=== PATIENT | female | born 1995 | race Caucasian/White ===

== ENCOUNTER 2024-12-13 05:52 | Emergency (ER) | payer BC, SELFPAY ==
[2024-12-13] VITALS (12 sets, daily range): BP systolic 124–132; BP diastolic 79–93; PULSE 80–112; RESP 13–20; TEMP 36.4; O2SAT 98–100
--- NOTE | ~2024-12-13 | US_ITS ---
EXAMINATION: US OB <=14 wk fetus w TV DATE: 12/13/2024 07:52 INDICATION: Pelvic pain and bleeding during first trimester . TECHNIQUE: Real-time pelvic ultrasound utilizing both a transvaginal and transabdominal probe was performed. The interpreting radiologist was not present for the study. COMPARISON: None. FINDINGS: The uterus measures 8.6 x 4.1 x 5.1 cm. Endometrial complex measures 6 mm in thickness. No evident intrauterine gestational sac. The right ovary measures 3.2 x 2.5 x 1.8 cm. The left ovary measures 3.2 x 2.7 x 2.0 cm. There are small anechoic follicles in both ovaries the largest measuring 1.2 cm on the left and 0.9 cm on the right. Basilar flow is also identified in both ovaries on color Doppler. There is no free fluid in the pelvis. IMPRESSION: 1. No evident intrauterine gestational sac for which differential would include early , failed or ectopic . No evident adnexal masses to elevate concern for the latter. Reviewed, dictated and finalized at location A. IMPRESSION: 1. No evident intrauterine gestational sac for which differential would include early , failed or ectopic . No evident adnexal mas ses to elevate concern for the latter.
[2024-12-13 06:12] LABS: Hematocrit 40.6 % (37.0-47.0); Hemoglobin 13.9 g/dL (12.0-15.0); Immature Granulocyte Percent A 0.3 % (0-0.5); Lymphocytes Absolute Auto 2.38 K/mm3 (0.9-3.2); Mean Corpuscular HGB Conc 34.2 g/dl (32-36); Mean Corpuscular Hemoglobin 30.6 pg (26-34); Mean Corpuscular Volume 89.4 fl (80-100); Nucleated Red Blood Cells Absolute Auto 0.000 K/mm3 (0.0-0.012); Nucleated Red Blood Cells Perc 0.0 % (0.0-0.2); Platelet Count Result 297 k/mm3 (150-375); Red Blood Count 4.54 M/mm3 (4.2-5.4); White Blood Count 7.4 K/mm3 (4.5-10.0)
[2024-12-13 06:24] LABS: INR 0.9; Partial Thromboplastin Time 29.3 Seconds (22.3-36.8); Prothrombin Time 12.8 Seconds (11.1-14.7)
--- NOTE | 2024-12-13 06:26 | ED.FEMALEGU ---
HPI - Female Genitourinary General Chief complaint: Vaginal Bleeding <Gavino Uriostegui MD - Last Filed: 12/13/24 07:12> Stated complaint: 5 weeks and bleeding <Gavino Uriostegui MD - Last Filed: 12/13/24 07:12> Time Seen by Provider: 12/13/24 05:56 <Gavino Uriostegui MD - Last Filed: 12/13/24 07:12> History of Present Illness HPI Narrative: 29-year-old otherwise healthy female approximately 5 weeks by last menstrual period presenting with vaginal bleeding and some clot passage. Some lower abdominal cramping she states feels like menses. Intentional . Has not yet established with her OBGYN Dr. Cardona, but has an appointment in early December. Patient denies any nausea, vomiting, fever, chills, back pain, dysuria or hematuria. Never had before. No history of abdominal surgeries. <Gavino Uriostegui MD - Last Filed: 12/13/24 07:12> Related Data Home medications: Home Medications ?Medication ?Instructions ?Recorded ?Confirmed ?Last Taken ?Type phentermine 37.5 mg tablet mg PO 07/13/24 07/13/24 Unknown History <Gavino Uriostegui MD - Last Filed: 12/13/24 07:12> Allergies/Adverse reactions: Allergies Allergy/AdvReac Type Severity Reaction Status Date / Time No Known Allergies Allergy Verified 07/13/24 15:41 <Gavino Uriostegui MD - Last Filed: 12/13/24 07:12> Review of Systems Review of Systems: As reviewed above in HPI <Gavino Uriostegui MD - Last Filed: 12/13/24 07:12> [facility] Family History Family History: Family History Father Hypertension <Gavino Uriostegui MD - Last Filed: 12/13/24 07:12> Social History Social History: Social History Smoking status: Never smoker Alcohol intake: current Alcohol use details: socially Substance use: never Substance use type: does not use Do You Feel Safe in your Home?: Yes Lack of Transportation: No Lack of Food: Never True Current Housing: I Have Housing Concerned About Future Housing: No Difficulty Paying Gas/Electric Bills: No Difficulty Paying for Meds: No Currently Unemployed: No Education: Master's Degree or Higher Difficulty w/ Childcare or Family Care: No Living arrangements: alone Occupation/Education: occupation Gender identity (if verbalized by the patient): Female Sexual Orientation (if Verbalized by the Patient): Straight or Heterosexual <Gavino Uriostegui MD - Last Filed: 12/13/24 07:12> Exam Narrative: GENERAL: [Well-appearing, well-nourished, and in no acute distress.] HEAD: [Normocephalic, atraumatic.] EYES: [PERRLA and EOMI.] ENT: Nares clear, no rhinorrhea or epistaxis. Mucous membranes moist. NECK: Supple. CHEST: [Clear to auscultation. No respiratory distress.] HEART: [Regular rate and rhythm]. No murmur heard. [Normal peripheral pulses.] ABDOMEN: [Soft, nondistended], [nontender], [No rigidity or guarding] EXTREMITIES: Normal range of motion. [No edema.] SKIN: Warm, dry, no rash. NEURO: [No focal deficits]. Alert and oriented [x3.] PSYCH: [Normal mood and affect.] <Gavino Uriostegui MD - Last Filed: 12/13/24 07:12> Course Course Emergency Course: ZYCH: Patient signed out pending transvaginal ultrasound. HCG was 3.34. Transvaginal ultrasound did not show a fetus inside the uterine vault. Blood type is O-positive and no need for RhoGAM. Patient does not have significant abdominal pain in her bleeding has slowed down significantly. Suspect patient has had a miscarriage although early with still be a consideration. Patient will be discharged to follow-up closely OBGYN to continue tracking hCG. Patient has updated on results and verbalized understanding. <Dalton Beck MD - Last Filed: 12/13/24 08:25> Vital Signs Vital signs: Vital Signs Temperature 97.5 F L 12/13/24 05:58 Pulse Rate 112 H 12/13/24 05:58 Respiratory Rate 18 12/13/24 05:58 Blood Pressure 132/85 12/13/24 05:58 Pulse Oximetry 100 12/13/24 05:58 Oxygen Delivery Room Air 12/13/24 05:58 Temperature 97.5 F L 12/13/24 05:58 Pulse Rate 86 12/13/24 06:31 Respiratory Rate 18 12/13/24 06:31 Blood Pressure 125/87 12/13/24 06:31 Pulse Oximetry 98 12/13/24 06:31 Oxygen Delivery Room Air 12/13/24 05:58 <Gavino Uriostegui MD - Last Filed: 12/13/24 07:12> Vital Signs Temperature 97.5 F L 12/13/24 05:58 Pulse Rate 112 H 12/13/24 05:58 Respiratory Rate 18 12/13/24 05:58 Blood Pressure 132/85 12/13/24 05:58 Pulse Oximetry 100 12/13/24 05:58 Oxygen Delivery Room Air 12/13/24 05:58 Temperature 97.5 F L 12/13/24 05:58 Pulse Rate 86 12/13/24 06:31 Respiratory Rate 18 12/13/24 06:31 Blood Pressure 125/87 12/13/24 06:31 Pulse Oximetry 98 12/13/24 06:31 Oxygen Delivery Room Air 12/13/24 05:58 <Dalton Beck MD - Last Filed: 12/13/24 08:25> MDM - Female Genitourinary MDM Narrative Medical decision making narrative: 29-year-old otherwise healthy female approximately 5 weeks by last menstrual period presenting with vaginal bleeding and some clot passage. Some lower abdominal cramping she states feels like menses. Intentional . Has not yet established with her OBGYN Dr. Cardona, but has an appointment in early December. Patient denies any nausea, vomiting, fever, chills, back pain, dysuria or hematuria. Never had before. No history of abdominal surgeries. Patient is well appearing not any acute distress. Mildly tachycardic but afebrile. Saturating 100% on room air. Normal vital signs. Soft nondistended nontender abdomen. Given patient's 1st trimester bleeding with unknown location will have to rule out ectopic or other potential causes of her bleeding. Urinalysis, beta hCG level, blood work obtained. Pelvic ultrasound ordered at this time. Patient care signed over to morning physician pending completion of workup and final disposition based on results. <Gavino Uriostegui MD - Last Filed: 12/13/24 07:12> Lab Data Result diagrams: 12/13/24 06:06 12/13/24 06:06 <Gavino Uriostegui MD - Last Filed: 12/13/24 07:12> Labs: Lab Results 12/13/24 Range/Units 06:06 WBC 7.4 (4.5-10.0) K/mm3 RBC 4.54 (4.2-5.4) M/mm3 Hgb 13.9 (12.0-15.0) g/dL Hct 40.6 (37.0-47.0) % MCV 89.4 (80-100) fl MCH 30.6 (26-34) pg MCHC 34.2 (32-36) g/dl RDW 12.5 (11.5-14.5) % Plt Count 297 (150-375) k/mm3 MPV 8.6 (7.4-10.4) fl Immature Gran % (Auto) 0.3 (0-0.5) % Neut % (Auto) 58.9 (45.5-73.1) % Lymph % (Auto) 32.3 (18.3-44.2) % Mellette % (Auto) 6.5 (2.6-8.5) % Eos % (Auto) 1.6 (0-4.4) % Baso % (Auto) 0.4 (0.2-1.2) % Lymph # (Auto) 2.38 (0.9-3.2) K/mm3 Mellette # (Auto) 0.5 (0.1-0.6) K/mm3 Eos # (Auto) 0.1 (0-0.3) K/mm3 Baso # (Auto) 0.0 (0.0-0.1) K/mm3 Abs Immat Gran (auto) 0.02 (0.00-0.031) K/mm3 Absolute Neuts (auto) 4.3 (1.3-6.7) K/mm3 Absolute Nucleated RBC 0.000 (0.0-0.012) K/mm3 Nucleated RBC % 0.0 (0.0-0.2) % PT 12.8 (11.1-14.7) Seconds INR 0.9 APTT 29.3 (22.3-36.8) Seconds Sodium 138 (137-145) mmol/L Potassium 3.5 (3.4-5.0) mmol/L Chloride 104 (98-107) mmol/L Carbon Dioxide 26 (22-30) mmol/L Anion Gap 8 (4-12) mmol/L BUN 13 (7-17) mg/dL Creatinine 0.85 (0.7-1.0) mg/dL Estim Creat Clear Calc 110 ml/min Estimated GFR > 60 (59 - ) Glucose 104 (65-110) mg/dL Calcium 8.6 (8.4-10.2) mg/dL Total Bilirubin 0.4 (0.2-1.3) mg/dL AST 25 (14-36) U/L ALT 18 (6-35) U/L Alkaline Phosphatase 61 (38-126) U/L Total Protein 7.0 (6.3-8.2) g/dL Albumin 4.0 (3.5-5.1) g/dL Beta HCG, Quant 3.34 mIU/ML Blood Type O Positive Antibody Screen Negative Screen Not Reportable Baby's Blood Type Not Reportable Baby's WILLIAM Not Reportable Doses of RhIg Required 0 <Gavino Uriostegui MD - Last Filed: 12/13/24 07:12> Lab Results 12/13/24 Range/Units 06:06 WBC 7.4 (4.5-10.0) K/mm3 RBC 4.54 (4.2-5.4) M/mm3 Hgb 13.9 (12.0-15.0) g/dL Hct 40.6 (37.0-47.0) % MCV 89.4 (80-100) fl MCH 30.6 (26-34) pg MCHC 34.2 (32-36) g/dl RDW 12.5 (11.5-14.5) % Plt Count 297 (150-375) k/mm3 MPV 8.6 (7.4-10.4) fl Immature Gran % (Auto) 0.3 (0-0.5) % Neut % (Auto) 58.9 (45.5-73.1) % Lymph % (Auto) 32.3 (18.3-44.2) % Mellette % (Auto) 6.5 (2.6-8.5) % Eos % (Auto) 1.6 (0-4.4) % Baso % (Auto) 0.4 (0.2-1.2) % Lymph # (Auto) 2.38 (0.9-3.2) K/mm3 Mellette # (Auto) 0.5 (0.1-0.6) K/mm3 Eos # (Auto) 0.1 (0-0.3) K/mm3 Baso # (Auto) 0.0 (0.0-0.1) K/mm3 Abs Immat Gran (auto) 0.02 (0.00-0.031) K/mm3 Absolute Neuts (auto) 4.3 (1.3-6.7) K/mm3 Absolute Nucleated RBC 0.000 (0.0-0.012) K/mm3 Nucleated RBC % 0.0 (0.0-0.2) % PT 12.8 (11.1-14.7) Seconds INR 0.9 APTT 29.3 (22.3-36.8) Seconds Sodium 138 (137-145) mmol/L Potassium 3.5 (3.4-5.0) mmol/L Chloride 104 (98-107) mmol/L Carbon Dioxide 26 (22-30) mmol/L Anion Gap 8 (4-12) mmol/L BUN 13 (7-17) mg/dL Creatinine 0.85 (0.7-1.0) mg/dL Estim Creat Clear Calc 110 ml/min Estimated GFR > 60 (59 - ) Glucose 104 (65-110) mg/dL Calcium 8.6 (8.4-10.2) mg/dL Total Bilirubin 0.4 (0.2-1.3) mg/dL AST 25 (14-36) U/L ALT 18 (6-35) U/L Alkaline Phosphatase 61 (38-126) U/L Total Protein 7.0 (6.3-8.2) g/dL Albumin 4.0 (3.5-5.1) g/dL Beta HCG, Quant 3.34 mIU/ML Blood Type O Positive Antibody Screen Negative Screen Not Reportable Baby's Blood Type Not Reportable Baby's WILLIAM Not Reportable Doses of RhIg Required 0 <Dalton Beck MD - Last Filed: 12/13/24 08:25> Discharge Plan Discharge Clinical Impression: Vaginal bleeding during <Gavino Uriostegui MD - Last Filed: 12/13/24 07:12> Patient Disposition: Still a Patient <Gavino Uriostegui MD - Last Filed: 12/13/24 07:12> Condition: Stable <Gavino Uriostegui MD - Last Filed: 12/13/24 07:12> Additional Instructions: Please call your OBGYN to arrange close follow-up in 2-3 days.. They will want to repeat her HCG to see if it is increasing or returning to 0. If you develop significant bleeding of more than 1 pad per hour for 2 hours and please return ED for re-evaluation. <Gavino Uriostegui MD - Last Filed: 12/13/24 07:12> Patient Language: Mongolian <Gavino Uriostegui MD - Last Filed: 12/13/24 07:12> Prescriptions: No Action phentermine 37.5 mg tablet PO sertraline 50 mg tablet 50 mg PO DAILY Qty: 90 0RF <Gavino Uriostegui MD - Last Filed: 12/13/24 07:12> Follow-up/Referrals: Topher Rosado MD [Physician, [employer]] - 2 Days Referral Note: Suspected miscarriage PHYSICIAN NOT ON STAFF,NONSTAFF [Primary Care Provider] <Gavino Uriostegui MD - Last Filed: 12/13/24 07:12>
[2024-12-13 06:33] LABS: Alanine Aminotransferase 18 U/L (6-35); Albumin Level 4.0 g/dL (3.5-5.1); Alkaline Phosphatase 61 U/L (38-126); Anion Gap 8 mmol/L (4-12); Aspartate Amino Transferase 25 U/L (14-36); Bilirubin,Total 0.4 mg/dL (0.2-1.3); Blood Urea Nitrogen 13 mg/dL (7-17); Calcium 8.6 mg/dL (8.4-10.2); Carbon Dioxide 26 mmol/L (22-30); Chloride 104 mmol/L (98-107); Estimated CRCL calculation 110 ml/min; Estimated Glomerular Filt Rate > 60; Glucose 104 mg/dL (65-110); Potassium 3.5 mmol/L (3.4-5.0); Sodium 138 mmol/L (137-145); Total Protein 7.0 g/dL (6.3-8.2)
[2024-12-13 06:49] LABS: Beta HCG Quantitative 3.34 mIU/ML
--- NOTE | 2024-12-13 07:12 | PC.NURSE ---
patient to ultrasound at this time. ambulated appropriately to wheelchair with a steady gait
== END 2024-12-13 08:38 | disposition home or self-care (01) ==
PROVIDERS: Emergency Provider Student in an Organized Health Care Education/Training Program
DX: O20.9 Hemorrhage in early pregnancy, unspecified (principal); Z3A.01 Less than 8 weeks gestation of pregnancy
CPT/HCPCS: 36415; 76801; 76817; 80053; 84702; 85025; 85461; 85610; 85730; 86850; 86900; 86901; 99284